=== PATIENT | female | born 1990 | race Caucasian/White ===

== ENCOUNTER 2017-08-20 08:34 | Emergency (ER) | payer OTHER ==
[~2017-08-20] VITALS: Ht 157.5 cm; Wt 67.6 kg
[2017-08-20 08:44] VITALS: BP 123/72
--- NOTE | 2017-08-20 08:52 | NUR ---
Patient ambulated to bed 08.
--- NOTE | 2017-08-20 09:01 | NUR ---
PATIENT PRESENTS TO ED WITH PT PRESENTS TO ER FOR EVALUATION OF VAGINAL BLEEDING DURING . LMP 06/15/17, EDC 03/27/18. DENIES N/V/D; SKIN IS PINK/WARM/DRY; AAOX4 WITH EVEN AND STEADY GAIT; LUNGS CLEAR BL; HR EVEN AND REGULAR; PT DENIES ANY FEVER, CP, SOB, OR COUGH AT THIS TIME; PATIENT STATES PAIN OF 0/10 AT THIS TIME; VSS; PATIENT POSITIONED FOR COMFORT; HOB ELEVATED; BEDRAILS UP X2; BED DOWN. ER MD MADE AWARE OF PT STATUS.
--- NOTE | 2017-08-20 09:03 | NUR ---
US at bedside.
[2017-08-20 09:16] LABS: BASOPHILS # (AUTO) 0.3 K/uL (0.00-0.22); BASOPHILS % (AUTO) 2.9 % (0.0-2.0); EOSINOPHILS # (AUTO) 0.1 K/uL (0-0.4); EOSINOPHILS % (AUTO) 0.6 % (0.0-4.0); HEMATOCRIT 38.4 % (36-48); HEMOGLOBIN 13.1 g/dL (12.0-16.0); LYMPHOCYTES # (AUTO) 1.2 K/uL (2.5-16.5); LYMPHOCYTES % (AUTO) 10.8 % (20.5-51.1); MEAN CORPUSCULAR HEMOGLOBIN 31 pg (27-31); MEAN CORPUSCULAR HGB CONC 34 g/dL (33-37); MEAN CORPUSCULAR VOLUME 91 fL (80-94); MONOCYTES # (AUTO) 0.3 K/uL (0.8-1.0); MONOCYTES % (AUTO) 2.8 % (1.7-9.3); NEUTROPHILS # (AUTO) 9.1 K/uL (1.8-7.7); NEUTROPHILS % (AUTO) 82.9 % (42.2-75.2); PLATELET COUNT (AUTO) 279 K/uL (140-450); RED BLOOD CELL COUNT(AUTO) 4.24 MIL/uL (4.20-5.40); RED CELL DISTRIBUTION WIDTH 12.1 % (11.6-13.7)
--- NOTE | 2017-08-20 10:25 | NUR ---
PT AMBULATED TO THE RESTROOM.
[2017-08-20 11:04] LABS: BILIRUBIN,URINE NEGATIVE (NEGATIVE); COLOR,URINE YELLOW (YELLOW); LEUKOCYTE ESTERASE ,URINE NEGATIVE (NEGATIVE); NITRITE, URINE NEGATIVE (NEGATIVE); PH,URINE 6.5 (5.0-9.0); UGLUCOSE NEGATIVE (NEGATIVE)
[2017-08-20 11:14] LABS: APPEARANCE,URINE CLEAR (CLEAR); BLOOD, URINE 1+ (NEGATIVE); RBC,URINE 0-5 (RARE) /HPF (0-5); WBC,URINE 0-5 (RARE) /HPF (0-5)
--- NOTE | 2017-08-20 11:42 | NUR ---
PT RESTINGBON BED;NO ACUTE DISTRESS NOTED;WILL CONTINUE TO MONITOR PT.
--- NOTE | 2017-08-20 12:24 | NUR ---
DR BLUE AT BEDSIDE
[2017-08-20 12:41] VITALS: BP 109/70
--- NOTE | 2017-08-20 12:41 | NUR ---
Patient discharged with v/s stable. Written and verbal after care instructions given and explained. Patient verbalized understanding. Ambulatory with steady gait. All questions addressed prior to discharge. Advised to follow up with PMD.
== END 2017-08-20 12:41 | disposition home or self-care (01) ==
LOC: MED 08:34
DX: O20.0 Threatened abortion (principal); Z3A.08 8 weeks gestation of pregnancy
CPT/HCPCS: 36415; 76801; 81001; 84702; 85025; 86900; 86901; 99285; Q0092

== ENCOUNTER 2017-12-25 21:30 | Observation (INO) | payer OTHER ==
[~2017-12-25] VITALS: Ht 157.5 cm; Wt 63.5 kg
[2017-12-25] MEDS ORDERED: PREN-546 PO (22:15)
[2017-12-25] MEDS ORDERED: CALC500C17 PO (22:16)
[2017-12-25] MEDS ORDERED: TERBUTALINE 1 MG/ML VIAL SUBQ SCH (22:20)
[2017-12-25] MEDS ORDERED: DIPHENOXYLATE /ATROPINE 2.5 MG TAB PO PRN ×2 (22:20→22:55)
[2017-12-25] MEDS ORDERED: TERBUTALINE 1 MG/ML VIAL SUBQ ONE (22:22)
[2017-12-25] MEDS ORDERED: DIPHENOXYLATE /ATROPINE 2.5 MG TAB ONE (22:27)
[2017-12-26] MEDS ORDERED: LACTATED RINGERS 1,000 ML IV SCH (00:40)
[2017-12-26 00:47] VITALS: BP 114/70
[2017-12-26 01:16] LABS: APPEARANCE,URINE CLEAR (CLEAR); BILIRUBIN,URINE NEGATIVE (NEGATIVE); BLOOD, URINE NEGATIVE (NEGATIVE); COLOR,URINE YELLOW (YELLOW); LEUKOCYTE ESTERASE ,URINE NEGATIVE (NEGATIVE); NITRITE, URINE NEGATIVE (NEGATIVE); UGLUCOSE NEGATIVE (NEGATIVE)
== END 2017-12-26 08:15 | disposition home or self-care (01) ==
LOC: MLD 21:30
PROVIDERS: ADMIT Obstetrics & Gynecology; ATTEND Obstetrics & Gynecology
DX: O62.9 Abnormality of forces of labor, unspecified (principal); Z3A.27 27 weeks gestation of pregnancy
CPT/HCPCS: 36415; 81003; 82731; 96360; 96361; 96372; G0378; J3105

== ENCOUNTER 2018-03-14 22:33 | Inpatient (IN) | payer OTHER ==
[~2018-03-14] VITALS: Ht 157.5 cm; Wt 69.9 kg
[~2018-03-14 22:33] MED LIST: CALC500C17 PO; PREN-546 PO
[2018-03-14 23:14] VITALS: BP 118/69
[2018-03-14] MEDS ORDERED: AMPICILLIN 2,000 MG in NACL 0.9% MINI-BAG PLUS 100 ML IV SCH (23:15)
[2018-03-14] MEDS ORDERED: LACTATED RINGERS 500 ML IV ONE (23:15)
[2018-03-14] MEDS ORDERED: NALBUPHINE HYDROCHLORIDE 10 MG/ML VIAL IVP PRN (23:15)
[2018-03-14] MEDS ORDERED: PROMETHAZINE 25 MG/ML VIAL IVP PRN (23:15)
[2018-03-14] MEDS ORDERED: OXYTOCIN 10 UNITS/ML VIAL IM SCH (23:15)
[2018-03-14] MEDS ORDERED: OXYTOCIN 20 UNITS in LACTATED RINGERS 1,000 ML IV SCH (23:20)
[2018-03-14 23:41] LABS: HEMATOCRIT 33.6 % (36-48); HEMOGLOBIN 10.9 g/dL (12.0-16.0); MEAN CORPUSCULAR HEMOGLOBIN 27 pg (27-31); MEAN CORPUSCULAR HGB CONC 33 g/dL (33-37); MEAN CORPUSCULAR VOLUME 83.2 fL (80-94); PLATELET COUNT (AUTO) 341 K/uL (140-450); RED BLOOD CELL COUNT(AUTO) 4.05 MIL/uL (4.20-5.40); RED CELL DISTRIBUTION WIDTH 14.1 % (11.6-13.7); WHITE BLOOD COUNT (AUTO) 10.5 K/uL (4.8-10.8)
[2018-03-14] MEDS ORDERED: AMPICILLIN 2,000 MG VIAL ONE (23:48)
[2018-03-14 23:56] LABS: APPEARANCE,URINE SL CLOUDY (CLEAR); BILIRUBIN,URINE NEGATIVE (NEGATIVE); BLOOD, URINE NEGATIVE (NEGATIVE); COLOR,URINE YELLOW (YELLOW); LEUKOCYTE ESTERASE ,URINE TRACE (NEGATIVE); NITRITE, URINE NEGATIVE (NEGATIVE); UGLUCOSE NEGATIVE (NEGATIVE)
[2018-03-15] MEDS: LACTATED RINGERS 1,000 ML IV SCH ×2 (00:02→07:38)
[2018-03-15 00:04] LABS: EOSINOPHILS % (MANUAL) 3 % (0-4); LYMPHOCYTES % (MANUAL) 27 % (20-46); MONOCYTES % (MANUAL) 4 % (5-12)
[2018-03-15 00:11] LABS: RBC,URINE 0-5 (RARE) /HPF (0-5); WBC,URINE 0-5 (RARE) /HPF (0-5)
[2018-03-15] MEDS ORDERED: NALBUPHINE 10 MG/ML AMP ONE ×2 (01:19→01:21)
[2018-03-15] MEDS ORDERED: PROMETHAZINE 25 MG/ML VIAL ONE (01:23)
[2018-03-15] MEDS ORDERED: AMPICILLIN 1,000 MG VIAL ONE ×2 (03:37→07:40)
[2018-03-15] MEDS ORDERED: OXYTOCIN 20 UNITS/LR PREMIX 1,000 ML IV ONE (03:42)
[2018-03-15] MEDS: AMPICILLIN 1,000 MG in NACL 0.9% MINI-BAG PLUS 50 ML IV SCH ×2 (03:57→08:00)
[2018-03-15] MEDS ORDERED: BUPIVACAINE 0.125%/NS PREMIX 250 ML ONE (07:27)
--- NOTE | 2018-03-15 09:20 | NUR ---
PATIENT HAS BEEN SCREENED AND CATEGORIZED LOW NUTRITION RISK. PATIENT WILL BE SEEN WITHIN 7 DAYS OF ADMISSION. 03/21/[address]
[2018-03-15 09:55] LABS: RAPID PLASMA REAGIN NON-REACTIVE (Non Reactiv)
[2018-03-15] MEDS ORDERED: OXYTOCIN 10 UNITS/ML VIAL ONE (10:41)
[2018-03-15] MEDS ORDERED: oxyCODONE/APAP 5/325 MG 1 TAB TAB PO PRN (16:05)
[2018-03-15] MEDS ORDERED: HYDROcodone/APAP 5/325 MG 1 TAB TAB PO PRN (16:05)
[2018-03-15] MEDS ORDERED: METHYLERGONOVINE 0.2 MG/ML AMP IM PRN (16:05)
[2018-03-15] MEDS ORDERED: BENZOCAINE/MENTHOL 20%-0.5% 60 GM CAN TP PRN (16:05)
[2018-03-15] MEDS ORDERED: TEMAZEPAM 15 MG CAP PO PRN (16:05)
[2018-03-15] MEDS: IBUPROFEN 800 MG TAB PO PRN (17:47)
[2018-03-15] MEDS ORDERED: DOCUSATE SOD/SENNA 50/8.6 MG 1 TAB PO SCH (21:00)
[2018-03-16 06:17] LABS: HEMOGLOBIN 11.1 g/dL (12.0-16.0)
[2018-03-16] MEDS: IBUPROFEN 800 MG TAB PO PRN (16:21)
== END 2018-03-17 13:20 | disposition home or self-care (01) | DRG 560 ==
LOC: MLD 22:33 → OBSVTOIN 23:11 → MFCC 03-15 15:30
PROVIDERS: ADMIT Obstetrics & Gynecology; ATTEND Obstetrics & Gynecology
PROC: 10E0XZZ Delivery of Products of Conception, External Approach (ICD-10-PCS; principal; 2018-03-15)
PROC: 10907ZC Drainage of Amniotic Fluid, Therapeutic from Products of Conception, Via Natural or Artificial Opening (ICD-10-PCS; 2018-03-15)
PROC: 0HQ9XZZ Repair Perineum Skin, External Approach (ICD-10-PCS; 2018-03-15)
PROC: 00HU33Z Insertion of Infusion Device into Spinal Canal, Percutaneous Approach (ICD-10-PCS; 2018-03-15)
PROC: 3E0R3BZ Introduction of Anesthetic Agent into Spinal Canal, Percutaneous Approach (ICD-10-PCS; 2018-03-15)
DX: O70.0 First degree perineal laceration during delivery (principal); Z37.0 Single live birth; Z3A.38 38 weeks gestation of pregnancy; Z28.21 Immunization not carried out because of patient refusal
CPT/HCPCS: 36415; 51702; 59200; 59409; 81001; 85018; 85025; 86592; 86886; 86900; 86901; 87653-90; G0378; J0290; J2300; J2550; J2590; J3490; J7120